=== PATIENT | female | born 1980 | race Caucasian/White ===

== ENCOUNTER 2019-10-16 13:06 | Outpatient (CLI) | payer OTHER, SELFPAY ==
[2019-10-16 15:11] LABS: Collection Time Urine 24 HOURS
[2019-10-16 15:12] LABS: Patient Weight 272 Lbs; Total Volume 24 Hour Urine 1100 ml
[2019-10-16 15:13] LABS: Creatinine Clearance Urine 114.7 ml/min (75-125); Total Protein Urine 24 Hr 154 MG/DAY (28-141); Total Protein Urine Random 14 mg/dL
== END 2019-10-16 13:07 | disposition home or self-care (01) ==
LOC: ANHOBOP 13:45
PROVIDERS: Visit Provider Obstetrics & Gynecology
DX: O13.9 Gestational [pregnancy-induced] hypertension without significant proteinuria, unspecified trimester (principal)
CPT/HCPCS: 81050; 82575; 84156

== ENCOUNTER 2020-01-15 16:01 | Observation (INO) | payer OTHER, SELFPAY ==
[2020-01-15] VITALS (14 sets, daily range): BP systolic 158–178; BP diastolic 84–105; PULSE 78–121; TEMP 36.9; BMI 51.5
--- NOTE | ~2020-01-15 | US_ITS ---
EXAMINATION: US OB follow up DATE: 01/16/2020 13:56 INDICATION: Hypertension. Preeclampsia. TECHNIQUE: Real-time ultrasound of the pelvis was performed. The interpreting radiologist was not pre sent for the study. COMPARISON: None. FINDINGS: There is a single living fetus in vertex presentation. The placenta is anterior. cardiac activ ity and movement are noted. heart rate is 139 beats per minute (bpm). The amniotic fluid is subjectively normal. Maximum fluid pocket is 4.7 cm. The following biometric data were obtained: BPD: 76 cm corresponds to gestational age 30 weeks 2 day(s). Head circumference: 287 cm corresponds to gestational age 31 weeks 3 day(s). Abdominal circumference: 278 cm corresponds to gestational age 31 weeks 6 day(s). Femur length: 59 cm corresponds to gestational age 30 weeks 5 day(s). Head circumference to abdominal circumference ratio: 1.03, normal range for gestational age is 0.96-1 .17. Estimated weight: 1743 g plus or minus 261 g. IMPRESSION: 1. Single living fetus in vertex presentation with heart rate of 139 bpm. 2. Normal placenta. 3: measurements correspond to 31 week 1 day gestation by current ultrasound ([facility] 03/18/2020). Reviewed, dictated and finalized at location [facility]. [facility] [employer] [employer] IMPRESSION: 1. Single living fetus in vertex presentation with heart rate of 139 bpm. 2. Normal placenta. 3: measurements correspond to 31 week 1 day gestation by current ultrasou nd ([facility] 03/18/2020).
--- NOTE | ~2020-01-15 | US_ITS ---
EXAMINATION: US OB BPP wo non-stress DATE: 01/16/2020 15:17 FIELD CONTROL INSPECTOR INDICATION: Hypertension. Preeclampsia. TECHNIQUE: Real-time transabdominal obstetric ultrasound. FINDINGS: No prior studies for comparison. There is a single living fetus in vertex presentation. The placenta is anterior without placenta pre via. cardiac activity and movement is noted with a heart rate of 139 beats per minute. Biophysical profile: breathin of 2 movement: 2 of 2 tone: 2 of 2 Amniotic flud pocket: 2 of 2 Total score: 2 of 8 IMPRESSION: 1. Single living intrauterine in vertex presentation. 2: Total biophysical profile score of 8/8. Reviewed, dictated and finalized at location [facility]. D CONTROL INSPECTOR
[2020-01-15 17:35] LABS: Basophils Absolute Auto 0.1 K/mm3 (0.0-0.1); Basophils Percent Auto 0.4 % (0.2-1.2); Eosinophils Absolute Auto 0.1 K/mm3 (0-0.3); Eosinophils Percent Auto 1.1 % (0-4.4); Hematocrit 39.3 % (37.0-47.0); Hemoglobin 13.1 g/dL (12.0-15.0); Immature Granulocyte Absolute 0.03 K/mm3 (0.00-0.031); Immature Granulocyte Percent A 0.3 % (0-0.5); Lymphocytes Absolute Auto 3.15 K/mm3 (0.9-3.2); Lymphocytes Percent Auto 26.7 % (18.3-44.2); Mean Corpuscular HGB Conc 33.3 g/dl (32-36); Mean Corpuscular Hemoglobin 29.6 pg (26-34); Mean Corpuscular Volume 88.7 fl (80-100); Mean Platelet Volume 10.4 fl (7.4-10.4); Monocytes Absolute Auto 0.9 K/mm3 (0.1-0.6); Monocytes Percent Auto 7.5 % (2.6-8.5); Neutrophils Absolute Auto 7.5 K/mm3 (1.3-6.7); Platelet Count Result 220 k/mm3 (150-375); Red Blood Count 4.43 M/mm3 (4.2-5.4); Red Cell Distribution Width 13.5 % (11.5-14.5); White Blood Count 11.8 K/mm3 (4.5-10.0)
[2020-01-15 17:44] LABS: Add Urine Microscopic? YES; Appearance Urine Clear (Clear); Bacteria Urine Trace /hpf; Bilirubin Urine Negative (Negative); Blood Urine 1+ (Negative); Color Urine Yellow (Yellow); Glucose Urine UA Negative (Negative); Ketones Urine Negative (Negative); Leukocyte Esterase Ur Negative LEU/UL (NEGATIVE); Mucus Urine Rare /lpf; Nitrate Urine Negative (Negative); Protein Urine 2+ mg/dL (Negative); RBC Urine 21-50 /hpf (0-2); Specific Grav Ur 1.018 (1.001-1.035); Squamous Epithelial Cell Urine Few /hpf (Few); Urobilinogen Urine Negative mg/dL (<2.0); WBC Urine 0-3 /hpf (0-3)
[2020-01-15 17:45] LABS: Creatinine Urine 89.3 mg/dL; Total Protein Urine Random 93 mg/dL
[2020-01-15 18:02] LABS: Alanine Aminotransferase 14 U/L (4-35); Albumin Level 3.2 g/dL (3.5-5.1); Alkaline Phosphatase 102 U/L (38-126); Aspartate Amino Transferase 19 U/L (14-36); Bilirubin,Total 0.2 mg/dL (0.2-1.3); Blood Urea Nitrogen 7 mg/dL (7-17); Calcium 8.8 mg/dL (8.4-10.2); Carbon Dioxide 28 mmol/L (22-30); Chloride 101 mmol/L (98-107); Estimated Glomerular Filt Rate > 60; Glucose 75 mg/dL (65-105); Potassium 4.3 mmol/L (3.4-5.0); Sodium 136 mmol/L (137-145)
[2020-01-15] MEDS: LABETALOL HCL 100 MG TABLET 200 MG PO (18:02)
[2020-01-15] MEDS: BETAMETHASONE SOD PHOS/ACETATE 30 MG/5 ML VIAL 12 MG IM (19:23)
--- NOTE | 2020-01-15 19:34 | PCDIET ---
called Dr. Brasher and reported BP and lab result. Order received to stay overnight for BP observation. start 24 hour urine.
--- NOTE | 2020-01-15 19:46 | PM.IMHP ---
H&P: HPI History of Present Illness Chief complaint: hip eval Narrative: Nancy Lynn is a 39 year old female at 31w2d who presented in the office today with elevated BP. She has a history of PreEclampsia. She reports new onset scotoma. She has had LE edema for the past several weeks. She denies any headache or RUQ pain. She endorses good movement and denies any regular contracgtions, vaginal bleeding or LOF. Review of Systems Review of Systems: All systems reviewed & are unremarkable except as noted in HPI and below [facility] Family History Family History (Updated 05/28/10 @ 15:12 by DOCTOR UNKNOWN) Other Hypertension Social History Social History Alcohol intake: current Meds Home Medications and Allergies Allergies Allergy/AdvReac Type Severity Reaction Status Date / Time No Known Allergies Allergy Mild Unverified 10/27/09 09:32 Vital Signs Vital Signs - 24 hr 01/15/20 16:30 01/15/20 16:33 01/15/20 16:46 Pulse Rate 121 H 84 80 Blood Pressure 173/104 H 167/96 H Blood Pressure [Left Arm] 173/104 H 01/15/20 17:00 01/15/20 17:15 01/15/20 17:30 Pulse Rate 78 86 88 Blood Pressure 160/97 H 162/105 H 172/100 H Blood Pressure [Left Arm] 01/15/20 17:46 01/15/20 18:01 01/15/20 18:02 Pulse Rate 81 83 83 Blood Pressure 171/93 H 166/100 H Blood Pressure [Left Arm] 01/15/20 19:22 Pulse Rate 79 Blood Pressure 158/93 H Blood Pressure [Left Arm] Exam Const: General: comfortable and no acute distress Neck: Neck: no JVD Resp: Effort & Inspection: normal respiratory effort Auscultation: clear to auscultation bilaterally Cardio: Rate: regular rate Rhythm: regular rhythm GI: Inspection: obesity GI Palp: Yes Soft to palpation and No Tenderness to palpation present (GI) Other: Gravid, fundal height equal to dates Skin: General skin exam: normal color Neuro: General: gait normal Extrem: General: edema (3+) bilateral Psych: Mental Status: mental status grossly normal Affect: normal affect H&P: Results Labs Labs: Short CBC 01/15/20 Range/Units 17:26 WBC 11.8 H (4.5-10.0) K/mm3 Hgb 13.1 (12.0-15.0) g/dL Hct 39.3 (37.0-47.0) % Plt Count 220 (150-375) k/mm3 BMP 01/15/20 17:26 Sodium 136 L Potassium 4.3 Chloride 101 Carbon Dioxide 28 BUN 7 Creatinine 0.60 L Glucose 75 Calcium 8.8 Liver Function 01/15/20 Range/Units 17:26 Total Bilirubin 0.2 (0.2-1.3) mg/dL AST 19 (14-36) U/L ALT 14 (4-35) U/L Alkaline Phosphatase 102 (38-126) U/L Albumin 3.2 L (3.5-5.1) g/dL Urine 01/15/20 Range/Units 17:26 Urine Color Yellow (Yellow) Urine Appearance Clear (Clear) Urine pH 6.0 (5.0-9.0) Ur Specific [place] 1.018 (1.001-1.035) Urine Protein 2+ H (Negative) mg/dL Urine Glucose (UA) Negative (Negative) mg/dL Assessment and Plan Assessment and plan (1) Supervision of high risk , unspecified, second trimester: Code(s): O09.92 - Supervision of high risk , unspecified, second trimester Status: Acute Assessment and Plan: 31w javier complicated by Preeclampsia BTMS administered 01/15/20 admit for observation daily NST (2) Pre-eclampsia added to pre-existing hypertension: Onset Date: 01/15/20 Code(s): O11.9 - Pre-existing hypertension with pre-eclampsia, unspecified trimester Status: Acute Assessment and Plan: Severe range BP in the office in the hospital triage PIH labs revealed significant proteinuria will collecte 24 hour TUP admit to the hospital for observation will start labetalol 200 mg BID will administer BTMS for lung maturity continue to monitor BPs
[2020-01-16] VITALS (23 sets, daily range): BP systolic 138–172; BP diastolic 74–102; PULSE 69–100; TEMP 36.6–36.8
[2020-01-16] MEDS: LABETALOL HCL 100 MG TABLET 200 MG PO ×2 (06:14→17:53)
--- NOTE | 2020-01-16 09:35 | PM.OBPNVD ---
OB - PN: Subj Subjective Date/time seen: 01/16/20 09:35 Interval history: 39 yo at 31w3d admitted for CHTN with superimposed preeclampsia. Pt doing well this morning. She still has LE edema and occasional scotoma. She continues to deny headache or RUQ pain. She endorses good FM and denies any regular ctx, vaginal bleeding or LOF. Patient comments: no complaints OB - PN: Obj Data Labs CBC & Chem 7: 01/15/20 17:26 01/15/20 17:26 Labs: Laboratory Results - last 24 hr 01/15/20 01/15/20 01/15/20 17:26 17:26 17:26 WBC 11.8 H RBC 4.43 Hgb 13.1 Hct 39.3 MCV 88.7 MCH 29.6 MCHC 33.3 RDW 13.5 Plt Count 220 MPV 10.4 Immature Gran % (Auto) 0.3 Neut % (Auto) 64.0 Lymph % (Auto) 26.7 [place] % (Auto) 7.5 Eos % (Auto) 1.1 Baso % (Auto) 0.4 Lymph # (Auto) 3.15 [place] # (Auto) 0.9 H Eos # (Auto) 0.1 Baso # (Auto) 0.1 Abs Immat Gran (auto) 0.03 Absolute Neuts (auto) 7.5 H Absolute Nucleated RBC 0.0 Nucleated RBC % 0.0 Sodium Potassium Chloride Carbon Dioxide BUN Creatinine Estim Creat Clear Calc Estimated GFR Glucose Uric Acid Calcium Total Bilirubin AST ALT Alkaline Phosphatase Total Protein Albumin Urine Color Yellow Urine Appearance Clear Urine pH 6.0 Ur Specific [place] 1.018 Urine Protein 2+ H Urine Glucose (UA) Negative Urine Ketones Negative Ur Blood (Man) 1+ H Urine Nitrate Negative Urine Bilirubin Negative Urine Urobilinogen Negative Ur Leukocyte Esterase Negative Urine RBC 21-50 H Urine WBC 0-3 Ur Squamous Epith Cells Few Urine Bacteria Trace Urine Mucus Rare U Random Total Protein 93 Urine Creatinine 89.3 01/15/20 17:26 WBC RBC Hgb Hct MCV MCH MCHC RDW Plt Count MPV Immature Gran % (Auto) Neut % (Auto) Lymph % (Auto) [place] % (Auto) Eos % (Auto) Baso % (Auto) Lymph # (Auto) [place] # (Auto) Eos # (Auto) Baso # (Auto) Abs Immat Gran (auto) Absolute Neuts (auto) Absolute Nucleated RBC Nucleated RBC % Sodium 136 L Potassium 4.3 Chloride 101 Carbon Dioxide 28 BUN 7 Creatinine 0.60 L Estim Creat Clear Calc Not Reportable Estimated GFR > 60 Glucose 75 Uric Acid 5.0 Calcium 8.8 Total Bilirubin 0.2 AST 19 ALT 14 Alkaline Phosphatase 102 Total Protein 6.0 L Albumin 3.2 L Urine Color Urine Appearance Urine pH Ur Specific [place] Urine Protein Urine Glucose (UA) Urine Ketones Ur Blood (Man) Urine Nitrate Urine Bilirubin Urine Urobilinogen Ur Leukocyte Esterase Urine RBC Urine WBC Ur Squamous Epith Cells Urine Bacteria Urine Mucus U Random Total Protein Urine Creatinine OB - PN A/P Assessment and Plan (1) Supervision of high risk , unspecified, second trimester: Code(s): O09.92 - Supervision of high risk , unspecified, second trimester Status: Acute (2) Pre-eclampsia added to pre-existing hypertension: Onset Date: 01/15/20 Code(s): O11.9 - Pre-existing hypertension with pre-eclampsia, unspecified trimester Status: Acute Assessment and Plan: continue labetalol 200 mg BID will add Procardia 30mg XL daily mild to severe range BP overnight continue in patient observation until 24 hr TUP finished 2nd round of BTMS due today will continue daily NST Time Spent With Patient Time: Total time spent is greater than 50% in coordination of care (as documented) at patient's floor/unit and/or counseling patient: Review of Systems Review of Systems: All systems reviewed & are unremarkable except as noted in HPI and below Exam Const: General: comfortable and no acute distress Resp: Effort & Inspection: normal respiratory effort Cardio: Rate: regular rate GI: Other: Gravid, non-tender Psych: Mental Status: mental status grossly normal Af
--- NOTE | 2020-01-16 14:12 | PC.NURSE ---
1330 PT TO US PER WHEELCHAIR
[2020-01-16 19:25] LABS: Total Volume 24 Hour Urine 1200 ml
[2020-01-16 19:26] LABS: Total Protein Urine 24 Hr 792 MG/DAY (28-141); Total Protein Urine Random 66 mg/dL
[2020-01-16] MEDS: BETAMETHASONE SOD PHOS/ACETATE 30 MG/5 ML VIAL 12 MG IM (19:32)
[2020-01-17 10:13] LABS: Collection Time Urine 24 HOURS; Creatinine Clearance Urine 119.6 ml/min (75-125); Creatinine Urine 115.1 mg/dL; Patient Weight 299 Lbs; Total Volume 24 Hour Urine 1200 ml
--- NOTE | 2020-01-20 14:10 | PM.IMHP ---
H&P: HPI History of Present Illness Chief complaint: hip eval Narrative: Nancy Lynn is a 39 year old female at 32w GA who presented today for testing. NST was non-reactive today. Pt's has been complicated by CHTN and diagnosed with superimposed preeclampsia. Patient complains of LE edema and scotoma. She denies RUQ pain or headache. She endorses good movement. She denies vaginal bleeding or LOF. Review of Systems Review of Systems: All systems reviewed & are unremarkable except as noted in HPI and below [facility] Family History Family History (Updated 05/28/10 @ 15:12 by DOCTOR UNKNOWN) Other Hypertension Social History Social History Alcohol intake: current Meds Home Medications and Allergies Home Medications Medication Instructions Recorded Confirmed Type labetalol 200 mg PO TID #60 tablet 01/16/20 Rx nifedipine [Procardia XL] 30 mg PO QAM #30 tablet 01/16/20 Rx Allergies Allergy/AdvReac Type Severity Reaction Status Date / Time No Known Allergies Allergy Mild Unverified 10/27/09 09:32 Exam Const: General: comfortable and no acute distress Eyes: General: appearance normal, both eyes and all related structures Resp: Effort & Inspection: normal respiratory effort Auscultation: clear to auscultation bilaterally Cardio: Rate: regular rate Rhythm: regular rhythm GI: Inspection: non-distended GI Palp: Yes Soft to palpation, No Tenderness to palpation present (GI) and No Guarding due to palpation present (GI) Auscultation: normal bowel sounds Other: Gravid uterus, fundal size equal to dates Neuro: General: deep tendon reflexes 2+ bilaterally Cognition (Neuro): normal cognition Speech: normal speech Extrem: General: edema (3+ bilateral LE edema ) Psych: Mental Status: mental status grossly normal Affect: normal affect Assessment and Plan Assessment and plan (1) Pre-eclampsia added to pre-existing hypertension: Onset Date: 01/15/20 Code(s): O11.9 - Pre-existing hypertension with pre-eclampsia, unspecified trimester Status: Acute Assessment and Plan: at 32w with CHTN with superimposed preeclampsia with severe features BP remains severe range despite labetalol 200mg TID and procardia 30mg XL BTMS (01/14-01/15) NST non-reactive today will transfer to [facility] under the care of JEFERSON will start magnesium sulfate 6g bolus followed by 2 g maintenance
== END 2020-01-16 20:05 | disposition home or self-care (01) ==
LOC: ANHOBOP 16:25 → ANHOBPP 16:26 → ANHOBOP 19:17 → ANHOBPP 19:17
PROVIDERS: Admitting Provider Student in an Organized Health Care Education/Training Program; Visit Provider Student in an Organized Health Care Education/Training Program
DX: O11.3 Pre-existing hypertension with pre-eclampsia, third trimester (principal); O10.913 Unspecified pre-existing hypertension complicating pregnancy, third trimester; Z3A.31 31 weeks gestation of pregnancy
CPT/HCPCS: 36415; 59025; 76816; 76819; 80053; 81001; 81050; 82570; 82575; 84156; 84550; 85025; 87086; 96372; A9270; G0378; G0379; J0702

== ENCOUNTER 2020-01-20 12:32 | Observation (INO) | payer OTHER, SELFPAY ==
[2020-01-20] VITALS (14 sets, daily range): BP systolic 116–168; BP diastolic 70–107; PULSE 77–102; O2SAT 96–98; BMI 51.5
--- NOTE | 2020-01-20 14:13 | HP_ITS ---
cc: UNKNOWN,DOCTOR; Luis F Brasher MD~ H&P: HPI History of Present Illness Chief complaint: hip eval Narrative: Nancy Lynn is a 39 year old female at 32w GA who presented today for testing. NST was non-reactive today. Pt's has been complicated by CHTN and diagnosed with superimposed preeclampsia. Patient complains of LE edema and scotoma. She denies RUQ pain or headache. She endorses good movement. She denies vaginal bleeding or LOF. Review of Systems Review of Systems: All systems reviewed & are unremarkable except as noted in HPI and below [facility] Family History Family History (Updated 05/28/10 @ 15:12 by DOCTOR UNKNOWN) Other Hypertension Social History Social History Alcohol intake: current Meds Home Medications and Allergies Home Medications Medication Instructions Recorded Confirmed Type labetalol 200 mg PO TID #60 tablet 01/16/20 Rx nifedipine [Procardia XL] 30 mg PO QAM #30 tablet 01/16/20 Rx Allergies Allergy/AdvReac Type Severity Reaction Status Date / Time No Known Allergies Allergy Mild Unverified 10/27/09 09:32 Exam Const: General: comfortable and no acute distress Eyes: General: appearance normal, both eyes and all related structures Resp: Effort & Inspection: normal respiratory effort Auscultation: clear to auscultation bilaterally Cardio: Rate: regular rate Rhythm: regular rhythm GI: Inspection: non-distended GI Palp: Yes Soft to palpation, No Tenderness to palpation present (GI) and No Guarding due to palpation present (GI) Auscultation: normal bowel sounds Other: Gravid uterus, fundal size equal to dates Neuro: General: deep tendon reflexes 2+ bilaterally Cognition (Neuro): normal cognition Speech: normal speech Extrem: General: edema (3+ bilateral LE edema ) Psych: Mental Status: mental status grossly normal Affect: normal affect Assessment and Plan Assessment and plan (1) Pre-eclampsia added to pre-existing hypertension: Onset Date: 01/15/20 Code(s): O11.9 - Pre-existing hypertension with pre-eclampsia, unspecified trimester Status: Acute Assessment and Plan: at 32w with CHTN with superimposed preeclampsia with severe features BP remains severe range despite labetalol 200mg TID and procardia 30mg XL BTMS (01/14-01/15) NST non-reactive today will transfer to [facility] under the care of MFM will start magnesium sulfate 6g bolus followed by 2 g maintenance Report Initialized date/time: Luis F Brasher MD 01/20/20 / 1413 Electronically signed by: Luis F Brasher MD 01/20/20 1421 [facility]
[2020-01-20] MEDS: LACTATED RINGERS 1,000 ML 75 ML (14:54)
[2020-01-20] MEDS: MAGNESIUM SULF 20GM/WATER500ML 500 ML 50 MG IV CONT (15:03)
[2020-01-20] MEDS: NIFEdipine 10 MG CAPSULE PO (15:14)
== END 2020-01-20 15:38 | disposition short-term general hospital (02) ==
LOC: ANHLDR 01-21 12:53
PROVIDERS: Admitting Provider Student in an Organized Health Care Education/Training Program; Visit Provider Student in an Organized Health Care Education/Training Program
DX: O11.3 Pre-existing hypertension with pre-eclampsia, third trimester (principal); Z3A.32 32 weeks gestation of pregnancy; Z82.49 Family history of ischemic heart disease and other diseases of the circulatory system
CPT/HCPCS: 96374; 96375; A9270; G0378; G0379; J0131; J3475; J7120